=== PATIENT | male | born 1950 | race Caucasian/White ===

== ENCOUNTER → 2018-02-25 | Outpatient (CLI) | payer OTHER ==
[~2018-02-25] MED LIST: DOXA4TAB3 PO; LISI-167 PO; METF500T17 PO; SIMV20TA3 PO; TAMS0.4C2 PO
== END | disposition home or self-care (01) ==
LOC: CFH 11:09
PROVIDERS: ATTEND Family Medicine
DX: R06.02 Shortness of breath (principal)
CPT/HCPCS: 71046

== ENCOUNTER 2018-02-28 07:37 | Inpatient (IN) | payer OTHER, MEDICARE ==
[~2018-02-28] VITALS: Ht 177.8 cm; Wt 89.0 kg
[2018-02-28] MEDS ORDERED: METF500T17 PO (08:00)
[2018-02-28] MEDS ORDERED: TAMS0.4C2 PO (08:00)
[2018-02-28] MEDS ORDERED: LISI-167 PO (08:00)
[2018-02-28] MEDS ORDERED: DOXA4TAB3 PO (08:00)
[2018-02-28] MEDS ORDERED: SIMV20TA3 PO (08:00)
[2018-02-28 08:20] LABS: BASOPHILS # (AUTO) 0.02 x10^3/uL (0-0.1); BASOPHILS % (AUTO) 0 % (0-1); EOSINOPHILS # (AUTO) 0.12 x10^3/uL (0-0.4); EOSINOPHILS % (AUTO) 2 % (1-7); LYMPHOCYTES # (AUTO) 0.92 x10^3/uL (1-3.4); LYMPHOCYTES % (AUTO) 16 % (22-44); MD NO; MEAN CORPUSCULAR HEMOGLOBIN 30.9 pg (27.5-34.5); MEAN CORPUSCULAR HGB CONC 33.5 g/dL (33.2-36.2); MEAN CORPUSCULAR VOLUME 92.5 fL (81-97); MEAN PLATELET VOLUME 8.8 fL (7.4-10.4); MONOCYTES # (AUTO) 0.35 x10^3/uL (0.2-0.8); MONOCYTES % (AUTO) 6 % (2-9); NEUTROPHILS # (AUTO) 4.36 x10^3/uL (1.8-6.8); NEUTROPHILS % (AUTO) 76 % (42-75); PLATELET COUNT 150 x10^3/uL (130-400); RED BLOOD COUNT 3.38 x10^6/uL (4.38-5.82); RED CELL DISTRIBUTION WIDTH 13.7 % (9.4-14.8)
[2018-02-28 08:32] LABS: ALANINE AMINOTRANSFERASE 53 U/L (12-78); ALBUMIN 3.4 g/dL (3.4-5.0); ANION GAP 5 mmol/L (5-15); CALCIUM 8.1 mg/dL (8.5-10.1); CHLORIDE 117 mmol/L (98-107)
[2018-02-28 08:34] LABS: ALKALINE PHOSPHATASE 66 U/L (45-117); BILIRUBIN,TOTAL 0.4 mg/dL (0.2-1.0); TOTAL PROTEIN 7.3 g/dL (6.4-8.2)
[2018-02-28] MEDS ORDERED: SODIUM CHLORIDE 0.9% 1,000 ML IV ONE (08:54)
[2018-02-28] MEDS ORDERED: CALCIUM CHLORIDE 10%, 10ML SYR IVPush ONE (09:00)
[2018-02-28] MEDS ORDERED: SODIUM BICARB 8.4%, 50ML SYRINGE IVPush ONE (09:00)
[2018-02-28] MEDS ORDERED: DEXTROSE 50%, 50ML SYRINGE IVPush ONE ×2 (09:00→14:30)
[2018-02-28] MEDS ORDERED: SODIUM CHLORIDE 0.9% 1,000ML IVBOLUS ONE (09:00)
[2018-02-28] MEDS ORDERED: SODIUM CHLORIDE FLUSH 10ML SYR IVF ONE (09:00)
[2018-02-28] MEDS ORDERED: INSULIN REGULAR 100 UNITS/ML, 3ML VIAL IVPush ONE ×2 (09:00→14:30)
[2018-02-28] MEDS ORDERED: SODIUM POLY SULFONATE UDC 15 GM/60 ML PO ONE (09:00)
[2018-02-28] MEDS ORDERED: SODIUM BICARB 8.4%, 50ML SYRINGE ONE (09:10)
[2018-02-28] MEDS ORDERED: DEXTROSE 50%, 50ML SYRINGE ONE (09:10)
[2018-02-28] MEDS ORDERED: INSULIN REGULAR 100 UNITS/ML, 3ML VIAL ONE (09:10)
[2018-02-28] MEDS ORDERED: CALCIUM CHLORIDE 10%, 10ML SYR ONE (09:15)
[2018-02-28] MEDS ORDERED: SODIUM CHLORIDE FLUSH 10ML SYR IVF PRN ×2 (10:00)
[2018-02-28] MEDS ORDERED: POLYETHYLENE GLYCOL 17 GM PACKET PO PRN (11:00)
[2018-02-28] MEDS ORDERED: GLUCAGON 1 MG IM PRN (11:00)
[2018-02-28] MEDS ORDERED: ONDANSETRON 2MG/ML, 2ML IVPush PRN (11:00)
[2018-02-28] MEDS ORDERED: DEXTROSE 50%, 50ML SYRINGE IVPush PRN (11:00)
[2018-02-28] MEDS ORDERED: DEXTROSE 4 GM TAB.CHEW PO PRN (11:00)
[2018-02-28] MEDS ORDERED: DOCUSATE 100 MG CAPSULE PO PRN (11:00)
[2018-02-28] MEDS ORDERED: BISACODYL 10 MG SUPP PR PRN (11:00)
[2018-02-28] MEDS: INSULIN LISPRO 100 UNITS/ML, PEN SQ-INSULIN SCH ×3 (11:00→19:54)
[2018-02-28 11:22] LABS: TROPONIN I < 0.015 ng/mL (0.000-0.045)
[2018-02-28] MEDS ORDERED: ONDANSETRON ODT 4 MG PO PRN (11:30)
[2018-02-28] MEDS ORDERED: ACETAMINOPHEN 325 MG TABLET PO PRN (11:30)
[2018-02-28 11:48] VITALS: BP 147/77
[2018-02-28 11:50] LABS: MICROSCOPIC NOT IND
[2018-02-28 11:54] LABS: CULTURE INDICATED? NO
[2018-02-28] MEDS ORDERED: SODIUM BICARBONATE 8.4% 75 MEQ in SODIUM CHLORIDE 0.45% 1,000 ML IV SCH (12:00)
[2018-02-28] MEDS ORDERED: hydrALAzine 20 MG/ML, 1ML IVPush PRN (12:00)
[2018-02-28] MEDS: HEPARIN 5,000 UNITS/ML, 1ML SQ SCH ×2 (12:00→12:43)
[2018-02-28] MEDS ORDERED: LIDODERM 5% PATCH TD PRN (12:00)
[2018-02-28] MEDS ORDERED: PHARMACY MAY ADJ FOR RENAL FX MC PRN (12:00)
[2018-02-28 12:22] VITALS: BP 151/70
[2018-02-28 14:14] LABS: ANION GAP 5 mmol/L (5-15); CALCIUM 8.4 mg/dL (8.5-10.1); CHLORIDE 118 mmol/L (98-107); CREATININE 3.24 mg/dL (0.7-1.3)
[2018-02-28] MEDS ORDERED: CALCIUM GLUCONATE 4.6 MEQ/10 ML IVPush ONE (14:30)
[2018-02-28] MEDS ORDERED: CALCIUM GLUCONATE 4.6 MEQ in SODIUM CHLORIDE 0.9% 50 ML IV ONE (15:00)
[2018-02-28 16:38] LABS: TROPONIN I < 0.015 ng/mL (0.000-0.045)
[2018-02-28] MEDS ORDERED: HYDROcodone/APAP 5/325 TABLET PO PRN (17:00)
[2018-02-28] MEDS ORDERED: OPIUM/BELLADONNA SUPP.RECT 16.2-30 MG PR PRN ×2 (18:00→18:30)
[2018-02-28] MEDS: FINASTERIDE 5 MG TABLET PO SCH (18:17)
[2018-02-28 19:38] VITALS: BP 145/70
[2018-02-28] MEDS: OXYBUTYNIN CHLORIDE 5 MG TABLET PO SCH (19:54)
[2018-02-28] MEDS: SIMVASTATIN 20 MG TABLET PO SCH (19:54)
[2018-02-28] MEDS: SODIUM CHLORIDE FLUSH 10ML SYR IVF SCH (19:55)
[2018-02-28 20:44] LABS: ANION GAP 10 mmol/L (5-15); CALCIUM 8.1 mg/dL (8.5-10.1); CHLORIDE 116 mmol/L (98-107); CREATININE 3.31 mg/dL (0.7-1.3)
[2018-02-28] MEDS: SODIUM BICARBONATE 8.4% 75 MEQ in SODIUM CHLORIDE 0.45% 1,000 ML IV SCH (20:59)
[2018-03-01 01:49] VITALS: BP 147/73
[2018-03-01 02:09] LABS: BASOPHILS # (AUTO) 0.03 x10^3/uL (0-0.1); BASOPHILS % (AUTO) 0 % (0-1); EOSINOPHILS % (AUTO) 1 % (1-7); LYMPHOCYTES # (AUTO) 1.26 x10^3/uL (1-3.4); LYMPHOCYTES % (AUTO) 15 % (22-44); MD NO; MEAN CORPUSCULAR HEMOGLOBIN 31.2 pg (27.5-34.5); MEAN CORPUSCULAR HGB CONC 33.7 g/dL (33.2-36.2); MEAN CORPUSCULAR VOLUME 92.4 fL (81-97); MEAN PLATELET VOLUME 9.1 fL (7.4-10.4); MONOCYTES # (AUTO) 0.41 x10^3/uL (0.2-0.8); MONOCYTES % (AUTO) 5 % (2-9); NEUTROPHILS # (AUTO) 6.64 x10^3/uL (1.8-6.8); NEUTROPHILS % (AUTO) 79 % (42-75); PLATELET COUNT 155 x10^3/uL (130-400); RED BLOOD COUNT 3.33 x10^6/uL (4.38-5.82)
[2018-03-01 02:10] LABS: ANION GAP 8 mmol/L (5-15); CHLORIDE 114 mmol/L (98-107); CREATININE 3.19 mg/dL (0.7-1.3)
[2018-03-01] MEDS: SODIUM BICARBONATE 8.4% 75 MEQ in SODIUM CHLORIDE 0.45% 1,000 ML IV SCH (03:55)
[2018-03-01 07:00] VITALS: BP 165/75
[2018-03-01] MEDS: INSULIN LISPRO 100 UNITS/ML, PEN SQ-INSULIN SCH ×4 (07:00→20:44)
[2018-03-01] MEDS: FINASTERIDE 5 MG TABLET PO SCH (08:23)
[2018-03-01] MEDS: TAMSULOSIN 0.4 MG CAP.ER.24H PO SCH (08:23)
[2018-03-01] MEDS: OXYBUTYNIN CHLORIDE 5 MG TABLET PO SCH ×2 (08:23→19:58)
[2018-03-01] MEDS: DOXAZOSIN 2MG TABLET PO SCH (08:23)
[2018-03-01] MEDS: SODIUM CHLORIDE FLUSH 10ML SYR IVF SCH ×2 (08:24→19:59)
[2018-03-01 08:29] LABS: ANION GAP 6 mmol/L (5-15); CALCIUM 8.4 mg/dL (8.5-10.1); CHLORIDE 113 mmol/L (98-107); CREATININE 3.14 mg/dL (0.7-1.3)
[2018-03-01] MEDS ORDERED: SODIUM ACETATE 75 MEQ in SODIUM CHLORIDE 0.45% 1,000 ML IV SCH (12:00)
[2018-03-01 12:35] VITALS: BP 143/71
[2018-03-01] MEDS: SODIUM CHLORIDE 0.45% 1,000 ML IV SCH ×2 (14:30→19:59)
[2018-03-01 19:38] VITALS: BP 152/74
[2018-03-01] MEDS: SIMVASTATIN 20 MG TABLET PO SCH (19:58)
[2018-03-02] MEDS: SODIUM CHLORIDE 0.45% 1,000 ML IV SCH ×3 (01:20→17:19)
[2018-03-02 02:01] VITALS: BP 120/63
[2018-03-02 05:33] LABS: BASOPHILS # (AUTO) 0.01 x10^3/uL (0-0.1); BASOPHILS % (AUTO) 0 % (0-1); EOSINOPHILS # (AUTO) 0.14 x10^3/uL (0-0.4); EOSINOPHILS % (AUTO) 2 % (1-7); LYMPHOCYTES # (AUTO) 1.18 x10^3/uL (1-3.4); LYMPHOCYTES % (AUTO) 14 % (22-44); MD NO; MEAN CORPUSCULAR HEMOGLOBIN 31.8 pg (27.5-34.5); MEAN CORPUSCULAR HGB CONC 34.2 g/dL (33.2-36.2); MEAN CORPUSCULAR VOLUME 93.1 fL (81-97); MEAN PLATELET VOLUME 8.9 fL (7.4-10.4); MONOCYTES # (AUTO) 0.44 x10^3/uL (0.2-0.8); MONOCYTES % (AUTO) 5 % (2-9); NEUTROPHILS # (AUTO) 6.46 x10^3/uL (1.8-6.8); NEUTROPHILS % (AUTO) 79 % (42-75); PLATELET COUNT 144 x10^3/uL (130-400); RED BLOOD COUNT 3.32 x10^6/uL (4.38-5.82); RED CELL DISTRIBUTION WIDTH 13.9 % (9.4-14.8)
[2018-03-02 05:48] LABS: CHLORIDE 109 mmol/L (98-107)
[2018-03-02 05:57] LABS: ALANINE AMINOTRANSFERASE 31 U/L (12-78); ALBUMIN 2.8 g/dL (3.4-5.0); ALKALINE PHOSPHATASE 51 U/L (45-117); ANION GAP 6 mmol/L (5-15); BILIRUBIN,TOTAL 0.4 mg/dL (0.2-1.0); CALCIUM 7.8 mg/dL (8.5-10.1); CREATININE 2.84 mg/dL (0.7-1.3); TOTAL PROTEIN 6.1 g/dL (6.4-8.2)
[2018-03-02 07:00] VITALS: BP 146/83
[2018-03-02] MEDS: INSULIN LISPRO 100 UNITS/ML, PEN SQ-INSULIN SCH ×4 (07:00→21:00)
[2018-03-02] MEDS ORDERED: MAGNESIUM SULFATE PMX 2GM/50ML 50 ML IV ONE (08:30)
[2018-03-02] MEDS: DOXAZOSIN 2MG TABLET PO SCH (08:46)
[2018-03-02] MEDS: OXYBUTYNIN CHLORIDE 5 MG TABLET PO SCH ×2 (08:47→20:37)
[2018-03-02] MEDS: TAMSULOSIN 0.4 MG CAP.ER.24H PO SCH (08:47)
[2018-03-02] MEDS: FINASTERIDE 5 MG TABLET PO SCH (08:47)
[2018-03-02] MEDS ORDERED: LIDOCAINE 2% VISCOUS 15 ML UDC MM PRN (10:00)
[2018-03-02] MEDS ORDERED: ERGOCALCIFEROL 50,000 UNIT CAPSULE PO SCH (12:00)
[2018-03-02] MEDS: CALCITRIOL 0.25 MCG CAPSULE PO SCH (13:19)
[2018-03-02] MEDS: SODIUM CHLORIDE FLUSH 10ML SYR IVF SCH ×2 (13:20→21:00)
[2018-03-02 15:04] VITALS: BP 118/77
[2018-03-02 19:26] VITALS: BP 103/55
[2018-03-02] MEDS: SIMVASTATIN 20 MG TABLET PO SCH (20:37)
[2018-03-03 01:27] VITALS: BP 131/72
[2018-03-03] MEDS: SODIUM CHLORIDE 0.45% 1,000 ML IV SCH ×2 (05:39→17:37)
[2018-03-03 05:44] LABS: BASOPHILS # (AUTO) 0.02 x10^3/uL (0-0.1); BASOPHILS % (AUTO) 0 % (0-1); EOSINOPHILS # (AUTO) 0.27 x10^3/uL (0-0.4); EOSINOPHILS % (AUTO) 3 % (1-7); LYMPHOCYTES # (AUTO) 1.34 x10^3/uL (1-3.4); LYMPHOCYTES % (AUTO) 15 % (22-44); MD NO; MEAN CORPUSCULAR HGB CONC 33.6 g/dL (33.2-36.2); MEAN CORPUSCULAR VOLUME 92.4 fL (81-97); MONOCYTES # (AUTO) 0.56 x10^3/uL (0.2-0.8); MONOCYTES % (AUTO) 6 % (2-9); NEUTROPHILS # (AUTO) 6.64 x10^3/uL (1.8-6.8); NEUTROPHILS % (AUTO) 75 % (42-75); PLATELET COUNT 164 x10^3/uL (130-400); RED BLOOD COUNT 3.45 x10^6/uL (4.38-5.82); RED CELL DISTRIBUTION WIDTH 13.6 % (9.4-14.8)
[2018-03-03 05:46] LABS: ABSOLUTE RETICS # 0.026 x10^6/uL (0.5-1.5); RED BLOOD COUNT 3.38 x10^6/uL (4.38-5.82); RETICULOCYTE COUNT % 0.78 % (0.5-1.5)
[2018-03-03 05:51] LABS: ALBUMIN 2.8 g/dL (3.4-5.0); ANION GAP 7 mmol/L (5-15); CALCIUM 8.4 mg/dL (8.5-10.1); CHLORIDE 109 mmol/L (98-107)
[2018-03-03 05:54] LABS: CREATININE 2.84 mg/dL (0.7-1.3)
[2018-03-03] MEDS: INSULIN LISPRO 100 UNITS/ML, PEN SQ-INSULIN SCH ×4 (07:00→20:41)
[2018-03-03 07:05] VITALS: BP 146/79
[2018-03-03] MEDS: FINASTERIDE 5 MG TABLET PO SCH (07:22)
[2018-03-03] MEDS: CALCITRIOL 0.25 MCG CAPSULE PO SCH (07:22)
[2018-03-03] MEDS: TAMSULOSIN 0.4 MG CAP.ER.24H PO SCH (07:23)
[2018-03-03] MEDS: DOXAZOSIN 2MG TABLET PO SCH (07:23)
[2018-03-03] MEDS: OXYBUTYNIN CHLORIDE 5 MG TABLET PO SCH ×2 (07:24→20:37)
[2018-03-03] MEDS: SODIUM CHLORIDE FLUSH 10ML SYR IVF SCH ×2 (09:00→20:37)
[2018-03-03] MEDS ORDERED: MIDAZOLAM 1 MG/ML, 2ML ONE (09:24)
[2018-03-03] MEDS ORDERED: FENTANYL PF 100 MCG/2ML ONE ×2 (09:24→10:11)
[2018-03-03] MEDS ORDERED: CEFAZOLIN 1,000 MG ONE (09:35)
[2018-03-03] MEDS ORDERED: ONDANSETRON 2MG/ML, 2ML ONE (09:35)
[2018-03-03] MEDS ORDERED: PROPOFOL 10 MG/ML, 20ML ONE (09:35)
[2018-03-03] MEDS ORDERED: DEXAMETHASONE 4 MG/ML, 1ML ONE (09:35)
[2018-03-03] MEDS ORDERED: PROMETHAZINE 25 MG/ML, 1ML IV PRN (10:00)
[2018-03-03] MEDS ORDERED: HALOPERIDOL 5 MG/ML IV PRN (10:00)
[2018-03-03] MEDS ORDERED: LORazepam 2 MG/ML, 1ML IVPush PRN (10:00)
[2018-03-03] MEDS ORDERED: OXYcodone 5 MG/5 ML ORAL.SOL UDC PO PRN (10:00)
[2018-03-03] MEDS ORDERED: hydrALAzine 20 MG/ML, 1ML IV PRN (10:00)
[2018-03-03] MEDS ORDERED: HYDROmorphone 1 MG/ML, 1ML IV PRN (10:00)
[2018-03-03] MEDS ORDERED: FENTANYL PF 100 MCG/2ML IV PRN (10:00)
[2018-03-03] MEDS ORDERED: LABETALOL 5MG/ML, 20ML IV PRN (10:00)
[2018-03-03] MEDS ORDERED: MEPERIDINE/PF 25MG/0.5ML IVPush PRN (10:00)
[2018-03-03] MEDS ORDERED: MEPERIDINE/PF 50 MG/ML ONE (11:01)
[2018-03-03] MEDS ORDERED: OXYcodone 5 MG/5 ML ORAL.SOL UDC ONE (11:02)
[2018-03-03 14:55] VITALS: BP 130/72
[2018-03-03 19:22] VITALS: BP 114/61
[2018-03-03] MEDS: SIMVASTATIN 20 MG TABLET PO SCH (20:37)
[2018-03-04 01:40] VITALS: BP 121/68
[2018-03-04 04:54] LABS: BASOPHILS # (AUTO) 0.02 x10^3/uL (0-0.1); BASOPHILS % (AUTO) 0 % (0-1); EOSINOPHILS # (AUTO) 0.15 x10^3/uL (0-0.4); EOSINOPHILS % (AUTO) 1 % (1-7); LYMPHOCYTES # (AUTO) 1.15 x10^3/uL (1-3.4); LYMPHOCYTES % (AUTO) 10 % (22-44); MD NO; MEAN CORPUSCULAR HEMOGLOBIN 31.4 pg (27.5-34.5); MEAN CORPUSCULAR HGB CONC 33.6 g/dL (33.2-36.2); MEAN CORPUSCULAR VOLUME 93.4 fL (81-97); MEAN PLATELET VOLUME 9.3 fL (7.4-10.4); MONOCYTES # (AUTO) 0.65 x10^3/uL (0.2-0.8); MONOCYTES % (AUTO) 6 % (2-9); NEUTROPHILS # (AUTO) 9.56 x10^3/uL (1.8-6.8); NEUTROPHILS % (AUTO) 83 % (42-75); PLATELET COUNT 173 x10^3/uL (130-400); RED BLOOD COUNT 3.38 x10^6/uL (4.38-5.82); RED CELL DISTRIBUTION WIDTH 13.6 % (9.4-14.8)
[2018-03-04 05:04] LABS: ALBUMIN 2.8 g/dL (3.4-5.0); ANION GAP 7 mmol/L (5-15); CALCIUM 8.6 mg/dL (8.5-10.1); CHLORIDE 108 mmol/L (98-107)
[2018-03-04 05:08] LABS: ALANINE AMINOTRANSFERASE 25 U/L (12-78); ALKALINE PHOSPHATASE 51 U/L (45-117); BILIRUBIN,TOTAL 0.3 mg/dL (0.2-1.0); CREATININE 2.92 mg/dL (0.7-1.3); TOTAL PROTEIN 6.6 g/dL (6.4-8.2)
[2018-03-04] MEDS: INSULIN LISPRO 100 UNITS/ML, PEN SQ-INSULIN SCH ×4 (07:00→20:46)
[2018-03-04 07:29] VITALS: BP 150/76
[2018-03-04] MEDS: CALCITRIOL 0.25 MCG CAPSULE PO SCH (07:45)
[2018-03-04] MEDS: FINASTERIDE 5 MG TABLET PO SCH (07:45)
[2018-03-04] MEDS: DOXAZOSIN 2MG TABLET PO SCH (07:46)
[2018-03-04] MEDS: OXYBUTYNIN CHLORIDE 5 MG TABLET PO SCH ×2 (07:46→20:44)
[2018-03-04] MEDS: TAMSULOSIN 0.4 MG CAP.ER.24H PO SCH (07:46)
[2018-03-04] MEDS: SODIUM CHLORIDE FLUSH 10ML SYR IVF SCH ×2 (07:47→20:44)
[2018-03-04] MEDS: SODIUM CHLORIDE 0.45% 1,000 ML IV SCH ×2 (12:48→20:48)
[2018-03-04 13:12] VITALS: BP 118/67
[2018-03-04 19:58] VITALS: BP 132/70
[2018-03-04] MEDS: SIMVASTATIN 20 MG TABLET PO SCH (20:44)
[2018-03-05 02:00] VITALS: BP 129/71
[2018-03-05 05:03] LABS: BASOPHILS # (AUTO) 0.03 x10^3/uL (0-0.1); BASOPHILS % (AUTO) 0 % (0-1); EOSINOPHILS # (AUTO) 0.49 x10^3/uL (0-0.4); EOSINOPHILS % (AUTO) 6 % (1-7); LYMPHOCYTES % (AUTO) 17 % (22-44); MD NO; MEAN CORPUSCULAR HEMOGLOBIN 31.8 pg (27.5-34.5); MEAN CORPUSCULAR HGB CONC 33.7 g/dL (33.2-36.2); MEAN CORPUSCULAR VOLUME 94.4 fL (81-97); MEAN PLATELET VOLUME 9.2 fL (7.4-10.4); MONOCYTES % (AUTO) 6 % (2-9); NEUTROPHILS # (AUTO) 6.11 x10^3/uL (1.8-6.8); NEUTROPHILS % (AUTO) 71 % (42-75); PLATELET COUNT 144 x10^3/uL (130-400); RED BLOOD COUNT 3.22 x10^6/uL (4.38-5.82); RED CELL DISTRIBUTION WIDTH 13.5 % (9.4-14.8)
[2018-03-05 05:08] LABS: ALANINE AMINOTRANSFERASE 26 U/L (12-78); ALBUMIN 2.8 g/dL (3.4-5.0); ANION GAP 4 mmol/L (5-15); CALCIUM 8.7 mg/dL (8.5-10.1); CHLORIDE 111 mmol/L (98-107); CREATININE 2.38 mg/dL (0.7-1.3)
[2018-03-05 05:10] LABS: ALKALINE PHOSPHATASE 49 U/L (45-117); BILIRUBIN,TOTAL 0.3 mg/dL (0.2-1.0); TOTAL PROTEIN 6.2 g/dL (6.4-8.2)
[2018-03-05] MEDS: INSULIN LISPRO 100 UNITS/ML, PEN SQ-INSULIN SCH ×2 (07:00→11:00)
[2018-03-05 07:05] VITALS: BP 129/68
[2018-03-05] MEDS: SODIUM CHLORIDE 0.45% 1,000 ML IV SCH (07:47)
[2018-03-05] MEDS ORDERED: GLIMEPIRIDE 1 MG TABLET PO SCH (08:00)
[2018-03-05] MEDS: TAMSULOSIN 0.4 MG CAP.ER.24H PO SCH (08:58)
[2018-03-05] MEDS: DOXAZOSIN 2MG TABLET PO SCH (08:58)
[2018-03-05] MEDS: OXYBUTYNIN CHLORIDE 5 MG TABLET PO SCH (08:58)
[2018-03-05] MEDS: CALCITRIOL 0.25 MCG CAPSULE PO SCH (08:58)
[2018-03-05] MEDS: FINASTERIDE 5 MG TABLET PO SCH (08:58)
[2018-03-05] MEDS: SODIUM CHLORIDE FLUSH 10ML SYR IVF SCH (08:59)
[2018-03-05] MEDS ORDERED: ERGO500017 PO (11:16)
[2018-03-05] MEDS ORDERED: CALC0.25 PO (11:16)
[2018-03-05] MEDS ORDERED: GLIM1TAB PO (11:16)
[2018-03-05] MEDS ORDERED: OXYB5TAB7 PO (11:16)
[2018-03-05] MEDS ORDERED: FINA5TAB4 PO (11:16)
== END 2018-03-05 13:08 | disposition home or self-care (01) | DRG 717 ==
LOC: ED 09:05 → 5SO 09:56 → 3NW 03-03 15:22
PROVIDERS: ADMIT Internal Medicine; ATTEND Internal Medicine
PROC: 0T9B70Z Drainage of Bladder with Drainage Device, Via Natural or Artificial Opening (ICD-10-PCS; 2018-02-28)
PROC: 0TBB8ZX Excision of Bladder, Via Natural or Artificial Opening Endoscopic, Diagnostic (ICD-10-PCS; 2018-03-03)
PROC: 0T5B8ZZ Destruction of Bladder, Via Natural or Artificial Opening Endoscopic (ICD-10-PCS; principal; 2018-03-03 15:00)
DX: N40.1 Benign prostatic hyperplasia with lower urinary tract symptoms (principal); N17.9 Acute kidney failure, unspecified; E87.2 Acidosis; N13.8 Other obstructive and reflux uropathy; N13.6 Pyonephrosis; N32.0 Bladder-neck obstruction; E83.42 Hypomagnesemia; E11.22 Type 2 diabetes mellitus with diabetic chronic kidney disease; D63.1 Anemia in chronic kidney disease; G89.29 Other chronic pain; I12.9 Hypertensive chronic kidney disease with stage 1 through stage 4 chronic kidney disease, or unspecified chronic kidney disease; N18.9 Chronic kidney disease, unspecified; E87.5 Hyperkalemia; E78.00 Pure hypercholesterolemia, unspecified; N25.0 Renal osteodystrophy; Z79.84 Long term (current) use of oral hypoglycemic drugs; Z79.899 Other long term (current) drug therapy; Z83.3 Family history of diabetes mellitus; Z79.1 Long term (current) use of non-steroidal anti-inflammatories (NSAID); Z79.2 Long term (current) use of antibiotics
CPT/HCPCS: 36415; 51702; 71046; 74176; 76770; 80048; 80053; 80069; 81003; 82306; 82310; 82728; 82962; 83540; 83550; 83735; 83970; 84100; 84484; 84550; 85025; 85045; 88112; 88305; 93005; 96361; 96374; 96375; 99291; G0378; J0690; J1100; J1644; J1815; J2250; J2405; J2704; J3010; Q0162; J0610; J3475; J7030

== ENCOUNTER 2018-03-24 15:19 | Emergency (ER) | payer OTHER, MEDICARE ==
[~2018-03-24] VITALS: Ht 177.8 cm; Wt 88.0 kg
[~2018-03-24 15:19] MED LIST changes: +CALC0.25 PO; +ERGO500017 PO; +FINA5TAB4 PO; +GLIM1TAB PO; +OXYB5TAB7 PO
[2018-03-24 16:23] LABS: BASOPHILS # (AUTO) 0.11 x10^3/uL (0-0.1); BASOPHILS % (AUTO) 1 % (0-1); EOSINOPHILS # (AUTO) 0.08 x10^3/uL (0-0.4); EOSINOPHILS % (AUTO) 1 % (1-7); LYMPHOCYTES # (AUTO) 1.29 x10^3/uL (1-3.4); LYMPHOCYTES % (AUTO) 9 % (22-44); MD NO; MEAN CORPUSCULAR HEMOGLOBIN 31.7 pg (27.5-34.5); MEAN CORPUSCULAR HGB CONC 33.7 g/dL (33.2-36.2); MEAN PLATELET VOLUME 7.9 fL (7.4-10.4); MONOCYTES # (AUTO) 1.09 x10^3/uL (0.2-0.8); MONOCYTES % (AUTO) 7 % (2-9); NEUTROPHILS # (AUTO) 12.13 x10^3/uL (1.8-6.8); NEUTROPHILS % (AUTO) 83 % (42-75); PLATELET COUNT 255 x10^3/uL (130-400); RED CELL DISTRIBUTION WIDTH 14.9 % (9.4-14.8)
[2018-03-24 16:30] LABS: ALBUMIN 3.5 g/dL (3.4-5.0); ANION GAP 11 mmol/L (5-15); CALCIUM 8.7 mg/dL (8.5-10.1); CHLORIDE 104 mmol/L (98-107)
[2018-03-24 16:34] LABS: ALANINE AMINOTRANSFERASE 37 U/L (12-78); ALKALINE PHOSPHATASE 77 U/L (45-117); BILIRUBIN,TOTAL 0.6 mg/dL (0.2-1.0); TOTAL PROTEIN 8.3 g/dL (6.4-8.2)
[2018-03-24 16:40] LABS: TROPONIN I < 0.015 ng/mL (0.000-0.045)
[2018-03-24 16:44] LABS: CULTURE INDICATED? YES; MICROSCOPIC INDICATED
[2018-03-24] MEDS ORDERED: CEFTRIAXONE PMX 1GM/50ML 50 ML IV ONE (17:00)
[2018-03-24] MEDS ORDERED: SODIUM CHLORIDE FLUSH 10ML SYR IVF ONE (17:00)
[2018-03-24] MEDS ORDERED: CEFTRIAXONE PMX 1GM/50ML 50 ML ONE (17:20)
[2018-03-24 18:48] VITALS: BP 102/51
== END 2018-03-24 18:50 | disposition home or self-care (01) ==
LOC: ED 17:17
DX: T83.511A Infection and inflammatory reaction due to indwelling urethral catheter, initial encounter (principal); N39.0 Urinary tract infection, site not specified; I12.9 Hypertensive chronic kidney disease with stage 1 through stage 4 chronic kidney disease, or unspecified chronic kidney disease; E11.22 Type 2 diabetes mellitus with diabetic chronic kidney disease; N18.9 Chronic kidney disease, unspecified
CPT/HCPCS: 36415; 71045; 80053; 81001; 84484; 85025; 87077; 87086; 87186; 93005; 96365; 99285; J0696

== ENCOUNTER 2018-04-21 07:35 | Inpatient (IN) | payer OTHER, MEDICARE ==
[2018-04-20 14:15] VITALS: BP 120/74
[~2018-04-21] VITALS: Ht 177.8 cm; Wt 89.6 kg
[2018-04-21] MEDS ORDERED: LACTATED RINGERS 1,000 ML IV SCH (08:28)
[2018-04-21 08:31] VITALS: BP 160/91
[2018-04-21 09:04] LABS: INTERNATIONAL NORMALIZED RATIO 1.06 (0.93-1.1); PROTHROMBIN TIME 11.2 Seconds (9.6-11.5)
[2018-04-21] MEDS ORDERED: METOPROLOL 1 MG/ML, 5ML ONE (09:16)
[2018-04-21] MEDS ORDERED: ONDANSETRON 2MG/ML, 2ML ONE (09:16)
[2018-04-21] MEDS ORDERED: GLYCOPYRROLATE 0.2MG/1ML, 5ML ONE (09:16)
[2018-04-21] MEDS ORDERED: NEOSTIGMINE 1 MG/ML, 10ML ONE (09:16)
[2018-04-21] MEDS ORDERED: DEXAMETHASONE 4 MG/ML, 1ML ONE (09:16)
[2018-04-21] MEDS ORDERED: ROCURONIUM 10 MG/ML,10ML ONE (09:16)
[2018-04-21] MEDS ORDERED: PROPOFOL 10 MG/ML, 20ML ONE (09:16)
[2018-04-21] MEDS ORDERED: FENTANYL PF 250 MCG/5ML ONE (09:32)
[2018-04-21] MEDS ORDERED: AMPICILLIN 2 GM ONE (09:35)
[2018-04-21] MEDS ORDERED: GENTAMICIN 80 MG/2 ML ONE (09:35)
[2018-04-21] MEDS ORDERED: HYDROmorphone 2 MG/ML, 1ML IVPush PRN (10:00)
[2018-04-21] MEDS ORDERED: ACETAMINOPHEN 325 MG TABLET PO PRN ×2 (10:00→14:00)
[2018-04-21] MEDS ORDERED: hydrALAzine 20 MG/ML, 1ML IV PRN (10:00)
[2018-04-21] MEDS ORDERED: LABETALOL 5MG/ML, 20ML IV PRN (10:00)
[2018-04-21] MEDS ORDERED: PROMETHAZINE 25 MG/ML, 1ML IV PRN (10:00)
[2018-04-21] MEDS ORDERED: OXYcodone 5 MG/5 ML ORAL.SOL UDC PO PRN (10:00)
[2018-04-21] MEDS ORDERED: ALBUTEROL SULFATE 2.5 MG/3 ML NPPB PRN (10:00)
[2018-04-21] MEDS ORDERED: MEPERIDINE/PF 25MG/0.5ML IVPush PRN (10:00)
[2018-04-21] MEDS ORDERED: DIAZEPAM 5 MG/ML, 2ML IVPush PRN (10:00)
[2018-04-21] MEDS: FENTANYL PF 100 MCG/2ML IV PRN ×2 (11:15→11:31)
[2018-04-21] MEDS ORDERED: OXYcodone 5 MG/5 ML ORAL.SOL UDC ONE (11:18)
[2018-04-21] MEDS ORDERED: hydrALAzine 20 MG/ML, 1ML ONE (11:28)
[2018-04-21] MEDS ORDERED: FENTANYL PF 100 MCG/2ML ONE (11:28)
[2018-04-21 12:37] LABS: BASOPHILS # (AUTO) 0.01 x10^3/uL (0-0.1); BASOPHILS % (AUTO) 0 % (0-1); EOSINOPHILS # (AUTO) 0.06 x10^3/uL (0-0.4); EOSINOPHILS % (AUTO) 1 % (1-7); LYMPHOCYTES # (AUTO) 0.77 x10^3/uL (1-3.4); LYMPHOCYTES % (AUTO) 10 % (22-44); MD NO; MEAN CORPUSCULAR HEMOGLOBIN 31.3 pg (27.5-34.5); MEAN CORPUSCULAR HGB CONC 33.3 g/dL (33.2-36.2); MEAN PLATELET VOLUME 8.2 fL (7.4-10.4); MONOCYTES # (AUTO) 0.07 x10^3/uL (0.2-0.8); MONOCYTES % (AUTO) 1 % (2-9); NEUTROPHILS # (AUTO) 7.12 x10^3/uL (1.8-6.8); NEUTROPHILS % (AUTO) 89 % (42-75); PLATELET COUNT 188 x10^3/uL (130-400); RED BLOOD COUNT 3.75 x10^6/uL (4.38-5.82); RED CELL DISTRIBUTION WIDTH 14.9 % (9.4-14.8)
[2018-04-21 12:50] LABS: ALBUMIN 3.3 g/dL (3.4-5.0); CALCIUM 8.7 mg/dL (8.5-10.1)
[2018-04-21 12:55] LABS: ALANINE AMINOTRANSFERASE 25 U/L (12-78); ALKALINE PHOSPHATASE 70 U/L (45-117); BILIRUBIN,TOTAL 0.3 mg/dL (0.2-1.0); CREATININE 1.89 mg/dL (0.7-1.3); TOTAL PROTEIN 7.3 g/dL (6.4-8.2)
[2018-04-21 13:16] LABS: ANION GAP 6 mmol/L (5-15); CHLORIDE 113 mmol/L (98-107)
[2018-04-21 14:00] VITALS: BP 120/74
[2018-04-21] MEDS ORDERED: morphine SULFATE 10 MG/ML, 1ML IVPush PRN (14:00)
[2018-04-21] MEDS ORDERED: ONDANSETRON 2MG/ML, 2ML IVPush PRN (14:00)
[2018-04-21] MEDS ORDERED: TEMAZEPAM 15 MG CAPSULE PO PRN (14:00)
[2018-04-21] MEDS ORDERED: hydrALAzine 20 MG/ML, 1ML IVPush PRN (14:00)
[2018-04-21 15:12] LABS: MICROSCOPIC AUTO
[2018-04-21 15:28] LABS: CULTURE INDICATED? NO
[2018-04-21 15:46] LABS: HEMOGLOBIN A1C 5.1 % (4.2-6.3)
[2018-04-21 20:25] VITALS: BP 118/68
[2018-04-21] MEDS: AMLODIPINE 5 MG TABLET PO SCH (20:27)
[2018-04-22 00:35] VITALS: BP 109/67
[2018-04-22 03:36] VITALS: BP 113/66
[2018-04-22 07:05] VITALS: BP 124/63
[2018-04-22] MEDS ORDERED: GLIMEPIRIDE 1 MG TABLET PO SCH (08:00)
[2018-04-22] MEDS: AMLODIPINE 5 MG TABLET PO SCH (08:28)
[2018-04-22 10:06] LABS: BASOPHILS % (AUTO) 0 % (0-1); EOSINOPHILS # (AUTO) 0.04 x10^3/uL (0-0.4); EOSINOPHILS % (AUTO) 0 % (1-7); LYMPHOCYTES # (AUTO) 1.65 x10^3/uL (1-3.4); LYMPHOCYTES % (AUTO) 17 % (22-44); MD NO; MEAN CORPUSCULAR HEMOGLOBIN 31.1 pg (27.5-34.5); MEAN CORPUSCULAR HGB CONC 32.9 g/dL (33.2-36.2); MEAN CORPUSCULAR VOLUME 94.5 fL (81-97); MEAN PLATELET VOLUME 8.4 fL (7.4-10.4); MONOCYTES # (AUTO) 0.43 x10^3/uL (0.2-0.8); MONOCYTES % (AUTO) 4 % (2-9); NEUTROPHILS # (AUTO) 7.87 x10^3/uL (1.8-6.8); NEUTROPHILS % (AUTO) 79 % (42-75); PLATELET COUNT 199 x10^3/uL (130-400); RED BLOOD COUNT 3.62 x10^6/uL (4.38-5.82); RED CELL DISTRIBUTION WIDTH 15.3 % (9.4-14.8)
[2018-04-22 10:35] LABS: ANION GAP 10 mmol/L (5-15); CALCIUM 8.8 mg/dL (8.5-10.1); CHLORIDE 107 mmol/L (98-107)
[2018-04-22 10:37] LABS: CREATININE 1.75 mg/dL (0.7-1.3)
[2018-04-22 13:46] VITALS: BP 122/66
[2018-04-22] MEDS ORDERED: AMLO-150 PO (15:52)
[2018-04-22] MEDS ORDERED: POLY17PO5 PO (15:53)
[2018-04-22] MEDS ORDERED: DOCU-131 PO (15:54)
[2018-04-22] MEDS ORDERED: PHEN100T90 PO (15:55)
== END 2018-04-22 16:08 | disposition home or self-care (01) | DRG 713 ==
LOC: OUT 07:35 → 4NOR 12:39 → OBSVTOIN 12:39 → 4NOR 12:39 → OUT 12:56 → DCLOUNGE 04-22 15:54
PROVIDERS: ADMIT Student in an Organized Health Care Education/Training Program; ATTEND Student in an Organized Health Care Education/Training Program
PROC: 0VT08ZZ Resection of Prostate, Via Natural or Artificial Opening Endoscopic (ICD-10-PCS; principal; 2018-04-21 10:00)
DX: N40.1 Benign prostatic hyperplasia with lower urinary tract symptoms (principal); N13.30 Unspecified hydronephrosis; N13.8 Other obstructive and reflux uropathy; N18.4 Chronic kidney disease, stage 4 (severe); R33.8 Other retention of urine; E11.22 Type 2 diabetes mellitus with diabetic chronic kidney disease; R31.9 Hematuria, unspecified; D63.8 Anemia in other chronic diseases classified elsewhere; E55.9 Vitamin D deficiency, unspecified; E78.5 Hyperlipidemia, unspecified; E87.5 Hyperkalemia; I12.9 Hypertensive chronic kidney disease with stage 1 through stage 4 chronic kidney disease, or unspecified chronic kidney disease; Z87.440 Personal history of urinary (tract) infections; Z79.84 Long term (current) use of oral hypoglycemic drugs; Z90.79 Acquired absence of other genital organ(s); Z91.14 Patient's other noncompliance with medication regimen
CPT/HCPCS: 36415; 80048; 80053; 81001; 82306; 82962; 83036; 83735; 84100; 85025; 85610; 85730; 88112; 88305; 93005; G0378; J0290; J1100; J2405; J2704; J2710; J3010; J3490; J0360; J1580; J7120

== ENCOUNTER → 2019-03-02 | Outpatient (CLI) | payer OTHER ==
[~2019-03-02] MED LIST changes: +AMLO-150 PO; +DOCU-131 PO; +OXYB5TAB10 PO; -OXYB5TAB7 PO; +PHEN100T90 PO; +POLY17PO5 PO
== END | disposition home or self-care (01) ==
LOC: RAD 13:13
PROVIDERS: ATTEND Family Medicine
DX: M41.84 Other forms of scoliosis, thoracic region (principal); M47.894 Other spondylosis, thoracic region; M95.4 Acquired deformity of chest and rib; M48.04 Spinal stenosis, thoracic region; E11.9 Type 2 diabetes mellitus without complications
CPT/HCPCS: 71111; 72072

== ENCOUNTER 2019-10-20 13:50 | Emergency (ER) | payer OTHER ==
[~2019-10-20] VITALS: Ht 180.3 cm; Wt 103.5 kg
[~2019-10-20 13:50] MED LIST changes: +SIMV20TA19 PO; -SIMV20TA3 PO
--- NOTE | 2019-10-20 13:54 | NUR ---
[email or web address]
--- NOTE | 2019-10-20 14:17 | NUR ---
SENIOR MOBILE APPLICATION DEVELOPER: PT CALLED FOR ROOM, NO ANSWER "OUT SMOKING"
--- NOTE | 2019-10-20 14:50 | NUR ---
NECK PINNER: PT TO ROOM FROM LOBBY
--- NOTE | 2019-10-20 15:00 | NUR ---
THIS IS A 69 YO MALE COMING IN FOR URINARY RETENTION, DYSURIA FOR THE PAST COUPLE DAYS WITH HEMATURIA TODAY. RED URINE NOTED WITH UA SAMPLE. PATIENT DENIES ANY FOUL ODOR. PATIENT STATES "I HAD A SURGERY ON MY PROSTATE LAST YEAR AND HAD A DAVIS IN FOR 4 OR 5 MONTHS". UNKNOWN WHAT SURGERY WAS DONE, NO COMPLICATIONS PER PATIENT. PATIETN DENIES FAMILY HX OF PROSTATE OR BLADDER CANCER. MONITORING IN PLACE. UA COLLECTED. CALL LIGHT IN REACH
[2019-10-20 15:42] LABS: BASOPHILS # (AUTO) 0.02 x10^3/uL (0-0.1); BASOPHILS % (AUTO) 0 % (0-1); EOSINOPHILS # (AUTO) 0.09 x10^3/uL (0-0.4); EOSINOPHILS % (AUTO) 1 % (1-7); LYMPHOCYTES # (AUTO) 1.73 x10^3/uL (1-3.4); LYMPHOCYTES % (AUTO) 20 % (22-44); MD NO; MEAN CORPUSCULAR HGB CONC 32.6 g/dL (33.2-36.2); MEAN CORPUSCULAR VOLUME 95.1 fL (81-97); MEAN PLATELET VOLUME 7.9 fL (7.4-10.4); MONOCYTES # (AUTO) 0.61 x10^3/uL (0.2-0.8); MONOCYTES % (AUTO) 7 % (2-9); NEUTROPHILS # (AUTO) 6.03 x10^3/uL (1.8-6.8); NEUTROPHILS % (AUTO) 71 % (42-75); PLATELET COUNT 206 x10^3/uL (130-400); RED BLOOD COUNT 4.62 x10^6/uL (4.38-5.82); RED CELL DISTRIBUTION WIDTH 13.6 % (9.4-14.8)
[2019-10-20 15:52] LABS: ANION GAP 8 mmol/L (5-15); CALCIUM 8.8 mg/dL (8.5-10.1); CHLORIDE 111 mmol/L (98-107); CREATININE 1.85 mg/dL (0.7-1.3)
[2019-10-20 15:53] LABS: MICROSCOPIC INDICATED
[2019-10-20 16:11] VITALS: BP 127/90
--- NOTE | 2019-10-20 16:11 | NUR ---
ALL RESULTS BACK, PATIENT UP FOR RECHECK
--- NOTE | 2019-10-20 16:25 | NUR ---
Patient given discharge instructions and they have confirmed that they understand the instructions. Patient ambulatory with steady gait.
== END 2019-10-20 16:27 | disposition home or self-care (01) ==
LOC: ED 16:20
DX: R30.0 Dysuria (principal); R31.0 Gross hematuria; E78.00 Pure hypercholesterolemia, unspecified; I10 Essential (primary) hypertension; E11.9 Type 2 diabetes mellitus without complications; E87.5 Hyperkalemia; R35.0 Frequency of micturition
CPT/HCPCS: 36415; 80048; 81001; 85025; 87086; 99283

== ENCOUNTER 2020-05-13 08:20 | Emergency (ER) | payer OTHER ==
[~2020-05-13] VITALS: Ht 177.8 cm; Wt 96.0 kg
--- NOTE | 2020-05-13 08:45 | NUR ---
First contact with pt. Chris HERNÁNDEZ at bedside to evaluate pt. Pt reports that on thursday he slipped and fell while walking to work. Pt reports 4/10 pain in R lower ribs, tender to palpation. Pt denies other injury. Pt speaking in full sentences, resp even and unlabored. No crepitus noted over lung area. Pt placed in gown, positioned for comfort in bed, declines warm blanket. Continuous oxygen and BP monitors applied, all safety measures observed.
--- NOTE | 2020-05-13 09:01 | NUR ---
Pt back from [employer]. Pt smiling, talking with account technicianTYSON rudolph.
[2020-05-13] MEDS ORDERED: KETOROLAC 30 MG/1 ML IM ONE (10:00)
[2020-05-13 10:26] VITALS: BP 126/80
--- NOTE | 2020-05-13 10:26 | NUR ---
TASK RN: CT COMPLETED AND AWAITING RE-EVAL
[2020-05-13] MEDS ORDERED: KETOROLAC 30 MG/1 ML ONE (10:51)
--- NOTE | 2020-05-13 10:59 | NUR ---
Pt medicated for pain per MAR by task RN. Pt ambulatory to bathroom and back to bed with steady gait.
--- NOTE | 2020-05-13 11:30 | NUR ---
Pt reports pain improved slightly after medications.
== END 2020-05-13 11:32 | disposition home or self-care (01) ==
LOC: ED 09:29
DX: S22.41XA Multiple fractures of ribs, right side, initial encounter for closed fracture (principal); R07.89 Other chest pain; I10 Essential (primary) hypertension; E11.9 Type 2 diabetes mellitus without complications; E78.00 Pure hypercholesterolemia, unspecified; W00.0XXA Fall on same level due to ice and snow, initial encounter; Y93.89 Activity, other specified; Y92.488 Other paved roadways as the place of occurrence of the external cause; Y99.8 Other external cause status
CPT/HCPCS: 71046; 71250; 96372; 99284; J1885